=== PATIENT | male | born 1980 | race Caucasian/White ===

== ENCOUNTER 2023-07-26 19:04 | Emergency (ER) | payer OTHER, SELFPAY ==
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
[2023-07-26 19:15] VITALS: BP 111/87
[2023-07-26 19:19] VITALS: BMI 20.3
[2023-07-26] MEDS: NARCAN 0.400000000000000022 MG IV (19:26)
[2023-07-26 19:40] LABS: % Basophils 0.2 % (0-2); % Eosinophils 2.1 % (0-6); % Immature Granulocytes 0.2 % (0-0.5); % Lymphocytes 37.4 % (20.5-51.1); % Neutrophils 56.1 % (42.2-75.2); Absolute Eosinophils 0.1 10^3/uL (0-0.7); Absolute Lymphocytes 1.6 10^3/uL (1.2-3.4); Absolute Monocytes 0.2 10^3/uL (0.1-0.6); Absolute Neutrophils 2.4 10^3/uL (1.4-6.5); Hematocrit 32.5 % (39.0-52.0); Hemoglobin 11.2 g/dL (13.0-18.0); Mean Corp Hgb Conc. 34.5 g/dL (33.0-37.0); Mean Corpuscular Hgb 31.7 pg (27.0-31.0); Mean Corpuscular Volume 92.1 fL (80.0-94.0); Mean Platelet Volume 8.3 fL (7.4-10.4); Nucleated Red Blood Cells % 0 % (-); Platelet Count 231 10^3/uL (130-400); Red Blood Cell Count 3.53 10^6/uL (4.70-6.10); Red Cell Dist. Width 12.9 % (11.5-14.5); White Blood Cell Count 4.3 10^3/uL (4.8-10.8)
[2023-07-26 19:56] LABS: ALT (SGPT) 20 U/L (0-50); AST (SGOT) 31 U/L (17-59); Albumin 3.2 g/dl (3.5-5.0); Alkaline Phosphatase 67 U/L (38-126); Blood Urea Nitrogen 9 mg/dl (9-20); Calcium 8.2 mg/dl (8.4-10.2); Carbon Dioxide 31 mmol/L (22-30); Chloride 96 mmol/L (98-107); Estimated Creatinine Clearance > 125 ml/min; Glucose 87 mg/dl (70-99); Potassium 3.9 mmol/L (3.5-5.1); Sodium 131 mmol/L (135-145); Total Bilirubin 0.3 mg/dl (0.2-1.3); Total Protein 6.1 g/dl (6.3-8.2); eGFR > 60.00
[2023-07-26 19:59] LABS: Alcohol None Detected
[2023-07-26 20:00] VITALS: BP 101/78
[2023-07-26 20:00] LABS: Amphetamines Positive (Negative); Barbiturates Negative (Negative); Benzodiazepines Negative (Negative); Cocaine Negative (Negative); Methadone Negative (Negative); Methamphetamines Positive (Negative); Opiates Negative (Negative)
[2023-07-26 20:01] LABS: Buprenorphine Positive (Negative); Marijuana Negative (Negative); Phencyclidine Negative (Negative); Tricyclic Antidepressants Negative (Negative)
[2023-07-26 20:16] LABS: Fentanyl, Urine Negative (Negative)
[2023-07-26 21:00] VITALS: BP 100/69
[2023-07-26 22:32] VITALS: BP 106/92
== END 2023-07-26 22:30 | disposition home or self-care (01) ==
LOC: EMR 19:04
PROVIDERS: EMERGENCY PHYSICIAN Emergency Medicine
DX: R41.82 Altered mental status, unspecified (principal)
CPT/HCPCS: 99283; 96374; 80053; 80306; 80307; 82077; 85025; 93005